=== PATIENT | male | born 1950 | race Caucasian/White ===

== ENCOUNTER 2024-04-22 10:26 | Outpatient (OUT) | payer MEDICARE, SELFPAY ==
[2024-04-22 13:08] LABS: Prostate Specific Antigen Scrn 0.83 ng/mL (<=4.00)
== END 2024-04-22 10:27 | disposition home or self-care (01) ==
PROVIDERS: PCP Family Medicine; Visit Provider Family Medicine
DX: I95.1 Orthostatic hypotension (principal); Z12.5 Encounter for screening for malignant neoplasm of prostate
CPT/HCPCS: 36415; G0103